=== PATIENT | male | born 1950 | race Caucasian/White ===

== ENCOUNTER 2019-12-24 14:25 | Emergency (ER) | payer MEDICARE ==
[2019-12-24 14:33] VITALS: RESP 18
[2019-12-24] MEDS ORDERED: SODIUM CHLORIDE 0.9% 500 ML 500 ML IV STA (16:44)
[2019-12-24] MEDS ORDERED: OXYMETAZOLINE 0.05% NASL SPRAY 1 SPRAY BOTTLE NASAL STA (16:44)
[2019-12-24] MEDS ORDERED: KETOROLAC 30 MG/ML 1 ML VIAL IVP STA (16:44)
--- NOTE | 2019-12-24 16:59 | ED ---
General Adult HPI - General Chief complaint: Upper Respiratory Infection Stated complaint: congestion/coughing/headaches Time Seen by Provider: 12/24/19 16:33 Source: patient Mode of arrival: ambulatory Limitations: no limitations - History of Present Illness Initial comments: Dictation was produced using [employer] dictation software. please excuse any grammatical, word or spelling errors. Chief Complaint: 69-year-old male presents with concerns of pneumonia. History of Present Illness: 69-year-old male presents today with concerns of pneumonia. Patient has history of chronic sinusitis. He seen multiple doctors in the past multiple times for sinusitis. Patient has been treated with multiple antibiotic medications last several weeks for sinusitis and recurrent sinusitis. Patient states he's had multiple episodes for his sinus infections. He's been on multiple courses of Zithromax. He was recently started on amoxicillin. States that he had a reaction to it and decided to stop it. He does have a sulfa ALLERGY. He has seen a ENT specialist several years ago was offered surgery however patient had not had the procedure. Because complaint of cough however no shortness of breath. Denies any constitutional symptoms. He does have a slight headache. He states his headache is very mild. Does have rhinorrhea and nasal congestion. The ROS documented in this emergency department record has been reviewed and confirmed by me. Those systems with pertinent positive or negative responses have been documented in the HPI. All other systems are other negative and/or noncontributory. PHYSICAL EXAM: General Impression: Alert and oriented x3, not in acute distress HEENT: Normocephalic atraumatic, extra-ocular movements intact, pupils equal and reactive to light bilaterally, mucous membranes moist. Cardiovascular: Heart regular rate and rhythm, S1&S2 audible, no murmurs, rubs or gallops Chest: Lungs clear to auscultation bilaterally, no rhonchi, no wheeze, no rales Abdomen: Bowel sounds present, abdomen soft, non-tender, non-distended, no organomegaly Musculoskeletal: Pulses present and equal in all extremities, no peripheral edema Motor: no focal deficits noted Neurological: CN II-XII grossly intact, no focal motor or sensory deficits noted Skin: Intact with no visualized rashes Psych: Normal affect and mood ED course: 69 yo male presents today for chief complaint of cough congestion. It is concerning about pneumonia. As upon arrival are within acceptable limits. Patient's well-appearing at bedside. Patient had an extended wait time because he did not want to see physician leasing assistant and requested to see a physician instead. Patient was initially saw at bedside approximately one hour and 45 minutes into his stay. Basic labs were obtained. CBC and metabolic panel is unremarkable. Chest x- rays negative. Reassurance provided that likely does not have pneumonia. He is told to follow-up with his primary care physician. Patient is urged to follow- up with ENT for outpatient management of his sinusitis. He is encouraged to get Afrin spray [id number] to help with his nasal congestion. - Related Data Home Medications Medication Instructions Recorded Confirmed Doxazosin Mesylate [Cardura] 8 mg PO HS 03/25/15 10/23/17 Montelukast Sodium [Singulair] 10 mg PO DAILY 03/25/15 10/23/17 Aspirin EC [Ecotrin Low Dose] 81 mg PO DAILY 10/23/17 10/23/17 Previous Rx's Medication Instructions Recorded Acetaminophen Tab [Tylenol] 650 mg PO Q6HR PRN tab 10/24/17 Apixaban [Eliquis] 5 mg PO BID #60 tab 10/24/17 Diltiazem Cd [Cardizem CD] 180 mg PO DAILY #30 cap.er.24h 10/24/17 Allergies Allergy/AdvReac Type Severity Reaction Status Date / Time etomidate Allergy Anaphylaxis Verified 12/24/19 14:33 Sulfa (Sulfonamide Allergy Unknown Verified 12/24/19 14:33 Antibiotics) Review of Systems ROS Statement: Those systems with pertinent positive or pertinent negative responses have been documented in the HPI. ROS Other: All systems not noted in ROS Statement are negative. Past Medical History Past Medical History: Asthma, Hypertension History of Any Multi-Drug Resistant Organisms: None Reported Past Surgical History: Adenoidectomy, Hernia Repair, Tonsillectomy Past Anesthesia/Blood Transfusion Reactions: Previous Problems w/ Anesthesia Additional Past Anesthesia/Blood Transfusion Reaction / Comment(s): Issues with Etomidate Past Psychological History: No Psychological Hx Reported Smoking Status: Never smoker Past Alcohol Use History: Occasional Past Drug Use History: None Reported - Past Family History Father Additional Family Medical History / Comment(s): Cerebral bleed Mother Family Medical History: Memory Impairment General Exam Limitations: no limitations Course Vital Signs 12/24/19 14:31 Temperature 97.8 F Pulse Rate 93 Respiratory 18 Rate Blood Pressure 120/70 O2 Sat by Pulse 96 Oximetry Medical Decision Making - Lab Data Result diagrams: 12/24/19 15:50 12/24/19 15:50 Lab Results 12/24/19 12/24/19 Range/Units 15:50 15:50 WBC 6.9 (3.8-10.6) k/uL RBC 4.61 (4.30-5.90) m/uL Hgb 13.7 (13.0-17.5) gm/dL Hct 41.6 (39.0-53.0) % MCV 90.1 (80.0-100.0) fL MCH 29.6 (25.0-35.0) pg MCHC 32.9 (31.0-37.0) g/dL RDW 12.6 (11.5-15.5) % Plt Count 179 (150-450) k/uL Neutrophils % 76 % Lymphocytes % 13 % Monocytes % 7 % Eosinophils % 2 % Basophils % 0 % Neutrophils # 5.2 (1.3-7.7) k/uL Lymphocytes # 0.9 L (1.0-4.8) k/uL Monocytes # 0.5 (0-1.0) k/uL Eosinophils # 0.1 (0-0.7) k/uL Basophils # 0.0 (0-0.2) k/uL Sodium 137 (137-145) mmol/L Potassium 3.9 (3.5-5.1) mmol/L Chloride 105 (98-107) mmol/L Carbon Dioxide 25 (22-30) mmol/L Anion Gap 7 mmol/L BUN 12 (9-20) mg/dL Creatinine 0.70 (0.66-1.25) mg/dL Est GFR (CKD-EPI)AfAm >90 (>60 ml/min/1.73 sqM) Est GFR (CKD-EPI)NonAf >90 (>60 ml/min/1.73 sqM) Glucose 150 H (74-99) mg/dL Calcium 9.0 (8.4-10.2) mg/dL Disposition Clinical Impression: Nasal congestion, Cough Disposition: HOME SELF-CARE Condition: Good Instructions (If sedation given, give patient instructions): Upper Respiratory Infection (ED) Additional Instructions: 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
[2019-12-24 17:08] LABS: Basophils % (A) 0 %; Eosinophils # (A) 0.1 k/uL (0-0.7); Eosinophils % (A) 2 %; HCT 41.6 % (39.0-53.0); HGB 13.7 gm/dL (13.0-17.5); Lymphocytes # (A) 0.9 k/uL (1.0-4.8); Lymphocytes % (A) 13 %; MCH 29.6 pg (25.0-35.0); MCHC 32.9 g/dL (31.0-37.0); MCV 90.1 fL (80.0-100.0); Mean Platelet Volume 7.6; Monocytes # (A) 0.5 k/uL (0-1.0); Monocytes % (A) 7 %; Neutrophils # (A) 5.2 k/uL (1.3-7.7); Neutrophils % (A) 76 %; Platelet Count 179 k/uL (150-450); RBC 4.61 m/uL (4.30-5.90); RDW 12.6 % (11.5-15.5); WBC 6.9 k/uL (3.8-10.6)
[2019-12-24 17:18] LABS: African American GFR (CKD) >90 (>60 ml/min/1.73 sqM); Blood Urea Nitrogen 12 mg/dL (9-20); Carbon Dioxide 25 mmol/L (22-30); Chloride 105 mmol/L (98-107); Glucose 150 mg/dL (74-99); Non-African American GFR(CKD) >90 (>60 ml/min/1.73 sqM)
[2019-12-24 17:19] LABS: Anion Gap 7 mmol/L; Potassium 3.9 mmol/L (3.5-5.1); Sodium 137 mmol/L (137-145)
--- NOTE | 2019-12-24 17:35 | XR ---
EXAMINATION TYPE: XR chest 2V DATE OF EXAM: 12/24/2019 COMPARISON: 10/23/2017 HISTORY: Abdominal pain Cough TECHNIQUE: 2 views FINDINGS: Heart and mediastinum are normal. Lungs are clear. Diaphragm is normal. Bony thorax is inta ct. Thoracic aorta is atheromatous. IMPRESSION: No active cardiopulmonary disease. No adverse change.
[2019-12-24 18:37] VITALS: BP 128/78; PULSE 64; TEMP 98.6
== END 2019-12-24 18:29 | disposition home or self-care (01) ==
LOC: EC 14:25
DX: R09.81 Nasal congestion (principal); R05 Cough; R51 Headache; J45.909 Unspecified asthma, uncomplicated; I10 Essential (primary) hypertension; Z79.82 Long term (current) use of aspirin; Z79.899 Other long term (current) drug therapy; Z88.2 Allergy status to sulfonamides; Z88.4 Allergy status to anesthetic agent
CPT/HCPCS: 36415; 80048; 85025; 71046; 99283; 96374; 96361; J1885

== ENCOUNTER → 2020-07-23 | Outpatient (CLI) | payer MEDICARE ==
[2020-07-23 08:02] LABS: African American GFR (CKD) >90 (>60 ml/min/1.73 sqM); Blood Urea Nitrogen 17 mg/dL (9-20); Non-African American GFR(CKD) >90 (>60 ml/min/1.73 sqM)
--- NOTE | 2020-07-23 09:47 | CT ---
EXAMINATION TYPE: CT urogram wo/w con DATE OF EXAM: 07/23/2020 COMPARISON: None. HISTORY: 2 episodes of right flank pain, gross hematuria. CT DLP: 5686.4 mGycm, Automated Exposure Control for Dose Reduction was Utilized. CONTRAST: CT scan of the abdomen and pelvis is performed without oral and without and with IV Contrast, patient injected with 100 mL of Isovue 300. Urogram protocol with 3-D reconstructed images created by [employer] workstation and reviewed. FINDINGS: KUB: Noncontrast images show no renal calculi bilaterally. Postcontrast images show symmetric cortica l medullary uptake and excretion without concerning solid or cystic renal mass or hydronephrosis seen bilaterally. There are some areas of cortical thinning and volume loss bilaterally. Ureters show suc cessful opacification without intraluminal mass or calculus. Bladder satisfactorily distended in midl ine of pelvis without mass or wall thickening. LUNG BASES: Coronary artery calcification is present which is noted marked underlying coronary artery disease. Slightly elevated left hemidiaphragm noted. LIVER/GB: There are 2 thin-walled cysts scattered throughout the liver. PANCREAS: No significant abnormality is seen. SPLEEN: No significant abnormality is seen. ADRENALS: No significant abnormality is seen. BOWEL: Some diverticula in the left and sigmoid colon. No CT evidence for acute diverticulitis. Moder ate amount of fecal prominence throughout the colon. No suspicious small or large bowel dilatation. PROSTATE/SEMINAL VESICLES: Mildly enlarged prostate gland bulging on bladder base consistent with BPH , correlate clinically. LYMPH NODES: No greater than 1cm abdominal or pelvic lymph nodes are appreciated. OSSEOUS STRUCTURES: Moderate multilevel spurring in the thoracic spine. Facet arthropathy lower lumba r spine. Moderate narrowing and mild acetabular spurring of both hip joints. 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 IMPRESSION: 1. Evidence of chronic medical renal disease. Source of patient's right flank pain and gross hematuri a not identified. 2. Mildly enlarged prostate gland consistent with BPH, correlate clinically. 3. Overall nonobstructive bowel gas pattern. Moderate diffuse colonic fecal stasis is felt present. C orrelate clinically. 4. 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
== END | disposition home or self-care (01) ==
LOC: RADCTMAIN 07:07
PROVIDERS: ATTEND Urology
DX: N40.0 Benign prostatic hyperplasia without lower urinary tract symptoms (principal); K59.8 Other specified functional intestinal disorders; I72.3 Aneurysm of iliac artery; Z88.2 Allergy status to sulfonamides; R31.0 Gross hematuria
CPT/HCPCS: 82565; 84520; 74178; 36415; 74400; Q9967

== ENCOUNTER 2022-11-27 06:16 | Day surgery (SDC) | payer MEDICARE ==
[2022-11-25 14:18] VITALS: BMI 36.6
[~2022-11-27 06:16] MED LIST: SODIUM CHLORIDE 0.9% 1,000 ML IV SCH
[2022-11-27 06:37] VITALS: RESP 18; TEMP 97.9
[2022-11-27] MEDS ORDERED: PROPOFOL 10 MG/ML 20 ML VIAL IV ONE (07:27)
--- NOTE | 2022-11-27 07:48 | P.PCN ---
Date of Procedure: 11/27/22 Operative Findings: Cardioversion Report Performing physician Benito Benson M.D. Procedure performed Successful cardioversion of atrial fibrillation to normal sinus mechanism using 200 J at first attempt Indication Symptomatic atrial fibrillation Complication None Level of sedation The procedure was performed under deep sedation using propofol with CRANE CREW SUPERVISOR in the room Procedure description After obtaining an informed consent the patient was brought to the recovery room. Sedation was introduced using propofol with CRANE CREW SUPERVISOR in the room. Subsequently the patient cardioverted from atrial fibrillation to normal sinus mechanism using 200 J and first attempt Conclusion Successful cardioversion of atrial fibrillation to normal sinus mechanism using 200 J Postprocedure management Continue the current medical regimen Continue oral anticoagulation Follow-up with the patient
[2022-11-27 09:32] VITALS: BP 132/74; PULSE 64
== END 2022-11-27 09:33 | disposition home or self-care (01) ==
LOC: CATHCVL 06:16
PROVIDERS: ATTEND Internal Medicine Interventional Cardiology
DX: I48.0 Paroxysmal atrial fibrillation (principal)
CPT/HCPCS: 92960; J2704

== ENCOUNTER → 2023-09-23 | Outpatient (CLI) | payer MEDICARE | END | disposition home or self-care (01) | LOC: RADUSWWP 13:31 | DX: Z53.9 Procedure and treatment not carried out, unspecified reason (principal) ==

== ENCOUNTER → 2024-04-25 | Outpatient (CLI) | payer MEDICARE ==
[2024-04-25 12:58] LABS: African American GFR (CKD) >90 (>60 ml/min/1.73 sqM); Blood Urea Nitrogen 21 mg/dL (9-20); Non-African American GFR(CKD) 82 (>60 ml/min/1.73 sqM)
--- NOTE | 2024-04-30 15:49 | CT ---
CTA CHEST EXAMINATION TYPE: CT angio chest DATE OF EXAM: 04/25/2024 INDICATION: THORACIC AORTIC ANEURYSM, WITHOUT RUPTURE CT DLP: 1144 mGycm, Automated exposure control for dose reduction was used. CONTRAST: Patient injected with 100ml mL of Isovue 370. COMPARISON: None TECHNIQUE: CT of the chest is performed on a spiral scan at 2 mm thick sections. Study is performed with intravenous contrast timed for evaluation for pulmonary embolism. This will limit additional po rtions of the evaluation. 3-D MIP images reconstructed by the technologist are reviewed on the compu ter in the coronal and sagittal planes. FINDINGS: No persistent filling defects are evident to suggest an acute pulmonary embolism. No mediastinal or hilar adenopathy enlarged by CT criteria is evident. The ascending aorta diameter at the level of the main pulmonary artery is 4.9 cm. The main pulmonary artery diameter at the bifurcation is 3.1 cm. Coronary artery calcification is present. Minimal per icardial fluid may be present. Lung windows are clear. Limited CT sections were through the upper abdomen. There is a 3.1 cm cyst in the upper medial right lobe liver. There is a cyst within the posterior dome right lobe liver measuring 2.5 cm. IMPRESSION: 1. No thoracic aortic aneurysm. 2. Hepatic cysts. 3. Suggestion of minimal pericardial effusion
== END | disposition home or self-care (01) ==
LOC: RADCTMAIN 12:09
PROVIDERS: ATTEND Internal Medicine Interventional Cardiology
DX: K76.89 Other specified diseases of liver (principal); I71.20 Thoracic aortic aneurysm, without rupture, unspecified
CPT/HCPCS: 82565; 84520; 71275; 36415; Q9967

== ENCOUNTER 2024-04-26 09:28 | Day surgery (SDC) | payer MEDICARE ==
[~2024-04-26 09:28] MED LIST changes: +LIDOCAINE 1% (10MG/ML) FOR IV START INTRADERMA PRN; +ONDANSETRON 4 MG/2 ML VIAL IVP PRN; -SODIUM CHLORIDE 0.9% 1,000 ML IV SCH
[2024-04-26] MEDS: LACTATED RINGERS 1,000 ML IV SCH (09:52)
[2024-04-26 10:46] VITALS: TEMP 97
[2024-04-26] MEDS ORDERED: MIDAZOLAM 2 MG/2 ML VIAL ONE (10:56)
[2024-04-26] MEDS ORDERED: PROPOFOL 10 MG/ML 20 ML VIAL IV ONE (10:56)
[2024-04-26] MEDS ORDERED: KETAMINE HCL IN 0.9 % NACL 50 MG/5 ML SYRINGE ONE (10:56)
--- NOTE | 2024-04-26 11:15 | P.PCN ---
Date of Procedure: 04/26/24 Procedure(s) Performed: BRIEF HISTORY: Patient is a 73-year-old pleasant white male scheduled for an elective colonoscopy as a part of screening for colon cancer. PROCEDURE PERFORMED: Colonoscopy with snare polypectomy. PREOPERATIVE DIAGNOSIS: Screening for colon cancer. IV sedation per Anesthesia. PROCEDURE: After informed consent was obtained, the patient, was brought into the endoscopy unit. IV sedation was administered by Anesthesia under continuous monitoring. Digital rectal examination was normal. Initially the Olympus CF-160 flexible video colonoscope was then inserted in the rectum, gradually advanced into the cecum without any difficulty. Careful examination was performed as the scope was gradually being withdrawn. Ileocecal valve and the appendiceal orifice were visualized and appeared normal. Prep was excellent. Mucosa of the cecum 5 mm and 8 mm polyp removed by cold snare polypectomy. Rest of the, ascending colon, transverse colon, descending colon, sigmoid colon, and rectum appeared normal. Scattered sigmoid diverticulosis. Retroflexion was performed in the rectum and no lesions were seen. The patient tolerated the procedure well. IMPRESSION: 5 mm and 8 mm cecal polyp status post cold snare polypectomy Scattered sigmoid diverticulosis RECOMMENDATIONS: Findings of this examination were discussed with the patient as well as his family.. He was advised to follow-up with the biopsy results. If the biopsy reveals adenoma he can have repeat colonoscopy in 5 years.
[2024-04-26 12:37] VITALS: BP 116/58; PULSE 87; RESP 18
== END 2024-04-26 12:39 | disposition home or self-care (01) ==
LOC: ORWHC2ENDO 09:28
PROVIDERS: ATTEND Internal Medicine Gastroenterology
DX: Z12.11 Encounter for screening for malignant neoplasm of colon (principal); D12.0 Benign neoplasm of cecum; K57.30 Diverticulosis of large intestine without perforation or abscess without bleeding; I48.91 Unspecified atrial fibrillation; I10 Essential (primary) hypertension; J45.909 Unspecified asthma, uncomplicated; G47.33 Obstructive sleep apnea (adult) (pediatric); N40.0 Benign prostatic hyperplasia without lower urinary tract symptoms; H91.90 Unspecified hearing loss, unspecified ear; G20.A1 Parkinson's disease without dyskinesia, without mention of fluctuations; Z79.51 Long term (current) use of inhaled steroids; Z79.01 Long term (current) use of anticoagulants; Z79.899 Other long term (current) drug therapy; Z88.2 Allergy status to sulfonamides; Z88.8 Allergy status to other drugs, medicaments and biological substances
CPT/HCPCS: 88305; 45385; J2250; J2704

== ENCOUNTER → 2024-10-02 | Outpatient (CLI) | payer MEDICARE ==
--- NOTE | 2024-10-02 15:23 | XR ---
EXAMINATION TYPE: XR chest 2V DATE OF EXAM: 10/02/2024 1:04 PM COMPARISON: None. CLINICAL INDICATION: Male, 74 years old with history of I48.21, J20.9 COUGH, AFIB, TECHNIQUE: XR chest 2V view(s) obtained. FINDINGS: The heart size is normal. The pulmonary vasculature is normal. The lungs are clear. IMPRESSION: 1. No acute pulmonary process. [facility], , 10/02/2024 3:21 PM
== END | disposition home or self-care (01) ==
LOC: RADXRMAIN 12:47
PROVIDERS: ATTEND Family Medicine
DX: I48.21 Permanent atrial fibrillation (principal); J20.9 Acute bronchitis, unspecified
CPT/HCPCS: 71046

== ENCOUNTER → 2025-05-21 | Outpatient (CLI) | payer MEDICARE ==
--- NOTE | 2025-05-21 15:59 | MR ---
EXAMINATION TYPE: MR lumbar spine wo con DATE OF EXAM: 05/21/2025 2:05 PM COMPARISON: 05/07/2025 07/23/2020.. CLINICAL INDICATION: Male, 74 years old with history of M47.26,M54.50,R26.81; PHH, Low back pain into left buttocks, Hx Parkinson's Disease TECHNIQUE: Multi planar, multi sequence imaging was performed utilizing: T1-weighted, T2-weighted, a nd turbo inversion recovery imaging of the lumbar spine. IV Contrast: mL (None, if empty) FINDINGS: Alignment: The lumbar vertebral bodies have preserved heights and alignment. Cord: The conus medullaris and the distal spinal cord appear unremarkable with regards to their signa l intensity and morphology. Bones/Discs: Degeneration changes throughout the spine with osteophyte formation and facet joint arth ropathy. Intervertebral disc signal is maintained. No abnormal inversion recovery signal to suggest b amria isabel edema. T12-L1: No evidence of significant spinal canal stenosis or neural foraminal stenosis. L1-L2: No evidence of significant spinal canal stenosis. Facet joint arthropathy mild bilateral neura l foraminal stenosis. L2-L3: No evidence of significant spinal canal stenosis. Facet joint arthropathy moderate bilateral n eural foraminal stenosis. L3-L4: No evidence of significant spinal canal stenosis. Facet joint arthropathy moderate bilateral n eural foraminal stenosis. L4-L5: Disc bulge and facet joint arthropathy result in mild spinal canal and moderate to severe bila teral neural foraminal stenosis with osteophyte displacing the left exiting nerve. L5-S1: The disc has a rounded posterior morphology without significant spinal canal stenosis. Facet j oint arthropathy with mild bilateral neural foraminal stenosis. No significant spinal canal or neural foraminal stenosis in the remainder of the visualized levels. IMPRESSION: 1. No definitive evidence of disc herniation or significant spinal canal stenosis. 2. Mild to moderate disc degeneration with associated osteoarthritic changes. 3. Neural foraminal stenosis worse at L4-L5 with osteophyte displacing the exiting left nerve. [facility], , 05/21/2025 3:57 PM
== END | disposition home or self-care (01) ==
LOC: RADMRIMAIN 12:51
PROVIDERS: ATTEND Orthopaedic Surgery
DX: M47.26 Other spondylosis with radiculopathy, lumbar region (principal); R26.81 Unsteadiness on feet; M47.816 Spondylosis without myelopathy or radiculopathy, lumbar region; M48.061 Spinal stenosis, lumbar region without neurogenic claudication; M51.16 Intervertebral disc disorders with radiculopathy, lumbar region
CPT/HCPCS: 72148